=== PATIENT | male | born 1970 | race Caucasian/White ===

== ENCOUNTER 2025-06-24 07:09 | Outpatient (CLI) | payer OTHER ==
[2025-06-24] MEDS ORDERED: Iopamidol 300 61% 100 ML VIAL FS ONE (13:41)
== END 2025-06-24 07:10 | disposition home or self-care (01) ==
LOC: CSHCT 07:09
PROVIDERS: ATTEND Surgery
DX: K43.2 Incisional hernia without obstruction or gangrene (principal)
CPT/HCPCS: 74177; Q9967

== ENCOUNTER 2025-07-06 11:03 | Outpatient (CLI) | payer OTHER ==
[2025-07-06 12:20] LABS: #Basophils 0.05 10x3/uL (0.0-0.2); #Eosinophils 0.23 10x3/uL (0.0-0.5); #Monocytes 0.69 10x3/uL (0.0-1.1); #Neutrophils 4.47 10x3/uL (1.5-8.4); %Basophils 0.7 % (0.0-2.0); %Eosinophils 3.4 % (0.0-6.0); %Lymphocytes 19.5 % (18.0-47.0); %Monocytes 10.2 % (0.0-10.0); %Neutrophils 65.9 % (40.0-75.0); Hematocrit 44.1 % (38.8-50.0); Hemoglobin 14.7 g/dL (13.5-17.5); Mean Corpuscular Hemoglobin 32.5 pg (27.0-33.0); Mean Corpuscular Volume 97.6 fL (81.2-95.1); Red Blood Cell (RBC) Count 4.52 10x6/uL (4.32-5.72); White Blood Cell (WBC) Count 6.78 10x3/uL (3.5-10.5)
[2025-07-06 12:35] LABS: Anion Gap 15 mmol/L (10-20); BUN (Urea Nitrogen) 7 mg/dL (8.4-25.7); Calc. Creatinine Clearance 0 mL/min (70-130); Calcium 8.8 mg/dL (7.8-10.44); Carbon Dioxide 22 mmol/L (22-29); Chloride 104 mmol/L (98-107); Glucose 121 mg/dL (70-105); Potassium 3.7 mmol/L (3.5-5.1); Sodium 137 mmol/L (136-145)
[2025-07-06 13:51] LABS: Platelet Count 126 10x3/uL (130-400)
[2025-07-06 13:52] LABS: RBC Morphology Within Normal Limits
[2025-07-06 13:55] LABS: Platelet Adequacy Comment Appears Decreased
== END 2025-07-06 11:04 | disposition home or self-care (01) ==
LOC: CSHLAB 11:03
PROVIDERS: ATTEND Surgery
DX: Z01.818 Encounter for other preprocedural examination (principal); K43.2 Incisional hernia without obstruction or gangrene; R94.31 Abnormal electrocardiogram [ECG] [EKG]
CPT/HCPCS: 80048; 85025; 93005; 93010